=== PATIENT | male | born 1955 | race Caucasian/White ===

== ENCOUNTER → 2017-08-04 | Outpatient (CLI) | payer BC ==
[2017-08-04 12:12] LABS: BASO % 0.5 %; BASO ABS # 0.03 K/uL (0-0.2); EOS % 2.5 %; EOS ABS # 0.16 K/uL (0-0.5); HEMATOCRIT 45.3 % (42-52); HEMOGLOBIN 15.9 g/dL (14.0-18.0); IG# 0.01 K/uL (0.00-0.02); LYMPH % 37.7 %; LYMPH ABS # 2.37 K/uL (1.2-3.4); MEAN CELL VOLUME 88.5 fL (80-100); MEAN CORPUSCULAR HEMOGLOBIN 31.1 pg (25-34); MEAN CORPUSCULAR HGB CONC 35.1 g/dl (32-36); MONO % 6.7 %; MONO ABS # 0.42 K/uL (0.11-0.59); NEUT % 52.4 %; NEUT ABS # 3.29 K/uL (1.4-6.5); PLATELET COUNT 202 K/uL (130-400); RED CELL DISTRIBUTION WIDTH CV 12.6 % (11.5-14.5); RED CELL DISTRIBUTION WIDTH SD 40.6 fL (36.4-46.3); WHITE BLOOD COUNT 6.28 K/uL (4.8-10.8)
[2017-08-04 12:35] LABS: BLOOD UREA NITROGEN 15 mg/dl (7-18); CALCIUM 9.4 mg/dl (8.5-10.1); CARBON DIOXIDE 30 mmol/L (21-32); CREATININE 1.07 mg/dl (0.60-1.40); GLUCOSE 96 mg/dl (70-99); POTASSIUM 4.3 mmol/L (3.5-5.1); SODIUM 138 mmol/L (136-145)
== END | disposition home or self-care (01) ==
LOC: C.CPL 09:43
PROVIDERS: ATTEND Surgery
DX: K40.90 Unilateral inguinal hernia, without obstruction or gangrene, not specified as recurrent (principal)

== ENCOUNTER → 2017-08-26 | Day surgery (SDC) | payer BC ==
[2017-08-11 08:36] VITALS: Ht 185.4 cm; Wt 104.1 kg
[~2017-08-26] VITALS: Ht 185.4 cm; Wt 104.1 kg
[~2017-08-26] MED LIST: ASCO10003 PO; ASPI81TA28 PO; BUPIVACAINE 0.5 % 5 MG/1 ML MPF 30ML VIAL ONE; CALC625T13 PO; CEFAZOLIN 2000MG IV PUSH 15 ML IV SCH; CEFAZOLIN SOD 1 GM VIAL ONE; CEPH500C2 PO; DEXAMETHASONE SOD INJ 4 MG/ML VIAL ONE; EpHEDrine SULFATE INJ 50 MG/ML AMP ONE; FENTANYL CITRATE INJ 50 MCG/1 ML 2 ML VIAL ONE; FERR325T18 PO; HYDR-5688 PO; HYDR12.55 PO; HYDROCODONE/ACETAMIN 5/325MG TAB PO PRN; LACTATED RINGER'S 1000ML 1,000 ML IV SCH; LANS30CA12 PO; LATA0.009 OPB; LIDOCAINE HCL 2% 2 ML VIAL (20MG/ML) ONE; LISI-461 PO; MIDAZOLAM HCL 1 MG/ML 2ML VIAL ONE; MULTTAB58 PO; OMEG10007 PO; ONDANSETRON INJ 2 MG/ML 2 ML VIAL ONE; PROPOFOL IV EMULSION 10 MG/ML 20 ML VIAL IV ONE; PRVC40 PO; SENNTAB23 PO; SODIUM CHLORIDE 0.9% 1000ML 1,000 ML IV SCH; SODIUM CHLORIDE 0.9% INJ 10 ML VIAL ONE
--- NOTE | 2017-08-26 12:52 | History & Physical Bridge - [place] ---
H&P Re-Evaluation Bridge Note: I have examined the patient, reviewed the History & Physical and in the interval since the performance of the History & Physical I have noted the following changes of clinical significance: No changes noted
--- NOTE | 2017-08-26 14:01 | [facility] Operative Report ---
Operative Report Operative Date Aug 26, 2017. Pre-Operative Diagnosis Right Inguinal Hernia Post-Operative Diagnosis Same as Pre-op Procedure(s) Performed Right Inguinal Open Hernia Repair with Mesh Surgeon Dr. Isbell [employer] Surgeon(s) Nena BONILLA Estimated Blood Loss 10ML Findings indirect sac Specimens None Drains None Anesthesia Type General Complication(s) none Disposition Recovery Room / PACU I attest to the content of the Intraoperative Record and any orders documented therein. Any exceptions are noted below.
--- NOTE | 2017-08-26 14:08 | Discharge Instructions-SurgCtr ---
Discharge Instructions Date of Service Aug 26, 2017. Visit Reason for Visit: Right Inguinal Hernia Discharge Discharge Diagnosis / Problem: Rt inguinal hernia Discharge Goals Goal(s): Decrease discomfort, Improve function, Improve disease control Medications Stopped Medications Name(s): asa and fish oil stopped x 1 week. last dose last tuesday. Activity Recommendations Activity Limitations: as noted below Lifting Limitations: no more than 25 pounds (for 4 weeks) May Resume Sexual Activity: when tolerated Shower/Bathe: keep incision dry (for 2 days, may shower over incision on Sun ) Driving or Machine Use: resume 3 days after discharge Anesthesia . Post Anesthesia Instructions: If you have had General Anesthesia or IV Sedation: * Do not drive today. * Resume driving when surgeon permits. * Do not make important decisions or sign legal documents today. * Call surgeon for: 1. Temperature elevations greater than 101 degrees F. 2. Uncontrollable pain. 3. Excessive bleeding. 4. Persistent nausea and vomiting. 5. Medication intolerance (nausea, vomiting or rash). * For nausea and vomiting use only clear liquids such as: tea, soda, bouillon until nausea subsides, then gradually increase diet as tolerated. * If you have any concerns or questions, call your surgeon's office. If physician is unavailable and it is an emergency, call 911 or go to the nearest emergency room. . Instructions / Follow-Up Instructions / Follow-Up SPECIAL CARE INSTRUCTIONS: * Cover incisions and change daily for comfort/drainage. * Leave steri strips in place * Avoid constipation- may use Senokot S and Milk of magnesia twice daily as directed on the package * May use ibuprofen for pain as tolerated. * Expect some swelling and bruising. Call your doctor if: * Temperature above 101 degrees * Pain not relieved by pain medicine ordered * There is increased drainage or redness from any incision * You have any unanswered questions or concerns [phone]. FOLLOW UP VISIT: If not already scheduled, please call the office for a follow-up visit. for next week- some suture removal OFFICE PHONE NUMBER: Dr. Isbell Office Diet Recommendations Home Diet: resume previous diet Procedures Procedures Performed: Right Inguinal Open Hernia Repair with Mesh Pending Studies Studies pending at discharge: no Medical Emergencies . Who to Call and When: Medical Emergencies: If at any time you feel your situation is an emergency, please call 911 immediately. . Non-Emergent Contact Non-Emergency issues call your: Primary Care Provider, Surgeon . . "Provider Documentation" section prepared by Tarun Isbell. .
--- NOTE | 2017-08-26 14:32 | OPERATIVE REPORT ---
DATE OF OPERATION: 08/26/2017 NAME OF OPERATION: Open right inguinal hernia repair. PREOPERATIVE DIAGNOSIS: Right inguinal hernia. POSTOPERATIVE DIAGNOSIS: Same with indirect defect. STAFF SURGEON: Dr. Tarun Isbell. BUSHEL WORKER: Gloria Restrepo PA-C ANESTHESIA: General. DESCRIPTION OF PROCEDURE: The patient was brought in the operating room and placed on the operating table in supine position. His right lower quadrant prepped and draped in usual fashion. 0.5% plain Marcaine was used to anesthetize skin and subcutaneous tissue. Incision made parallel to the inguinal ligament, carrying dissection down identifying the external oblique fibers. I did have to go through significant adipose tissue. Fibers were sized along their length to the external ring, identifying the ilioinguinal and iliohypogastric nerves. The cord structures were then mobilized with mild difficulty. The patient had a relatively large indirect hernia sac, which was dissected away from the cord structures. It was then oversewn using 2-0 Ethibond suture and then reduced. The internal ring reinforced using a mesh plug. Then a large mesh patch placed into the floor of the canal around the cord structures secured to surrounding tissue using 2-0 Ethibond suture. The site was irrigated and then anesthetized using 0.5% plain Marcaine. External oblique fibers were closed around the cord over the mesh using 2-0 Ethibond suture. Subcutaneous tissue reapproximated using 2-0 plain catgut suture, then the skin reapproximated using 4-0 nylon suture and Steri-Strips. My assistant account manager helped with prepping, draping, exposing the hernia, repair of the hernia and closure of the wound. I attest to the content of the Intraoperative Record and any orders documented therein. Any exception s are noted below.
[2017-08-26 14:52] VITALS: TEMP 36.4
--- NOTE | 2017-08-26 15:03 | Anesthesia Progress Nt - [facility] ---
Anesthesia Post Op Note Date & Time Aug 26, 2017 at 15:03 Vital Signs Pain Intensity: 0 Vital Signs Past 12 Hours Date Time Temp Pulse Resp B/P (MAP) Pulse Ox O2 Delivery O2 Flow Rate FiO2 08/26/17 14:52 36.4 57 16 160/89 (112) 97 Room Air 08/26/17 14:47 61 15 96 08/26/17 14:47 61 15 08/26/17 14:46 127/81 08/26/17 14:44 36.3 58 15 127/81 96 Room Air 08/26/17 14:42 61 18 08/26/17 14:42 61 18 96 08/26/17 14:41 132/81 08/26/17 14:37 63 15 08/26/17 14:37 63 15 97 08/26/17 14:36 133/83 08/26/17 14:32 59 16 100 08/26/17 14:32 59 16 08/26/17 14:31 132/78 08/26/17 14:27 60 11 08/26/17 14:27 60 11 100 08/26/17 14:26 129/76 08/26/17 14:22 63 12 08/26/17 14:22 63 12 100 08/26/17 14:21 138/76 08/26/17 14:17 60 12 08/26/17 14:17 60 12 100 08/26/17 14:16 132/76 08/26/17 14:13 136/79 08/26/17 14:12 36.7 67 12 136/79 97 Mask 6 08/26/17 11:21 36.5 48 18 139/80 (99) 96 Room Air Notes Mental Status: alert / awake / arousable, participated in evaluation Pt Amnestic to Procedure: Yes Nausea / Vomiting: adequately controlled Pain: adequately controlled Airway Patency, RR, SpO2: stable & adequate BP & HR: stable & adequate Hydration State: stable & adequate Anesthetic Complications: no major complications apparent
[2017-08-26 15:16] VITALS: BP 144/81; PULSE 58; O2SAT 97
== END | disposition home or self-care (01) ==
LOC: X.SURG 10:54
PROVIDERS: ATTEND Surgery
DX: K40.90 Unilateral inguinal hernia, without obstruction or gangrene, not specified as recurrent (principal); G47.33 Obstructive sleep apnea (adult) (pediatric); I10 Essential (primary) hypertension; H40.9 Unspecified glaucoma; Z98.52 Vasectomy status; Z90.89 Acquired absence of other organs; Z88.8 Allergy status to other drugs, medicaments and biological substances; Z79.82 Long term (current) use of aspirin; Z79.899 Other long term (current) drug therapy; Z86.718 Personal history of other venous thrombosis and embolism

== ENCOUNTER 2021-02-01 21:19 | Observation (INO) ==
[2021-02-01] MEDS ORDERED: MoRPHine SULFATE 4 MG/ML 1 ML CARP\\VIAL IV STA (21:46)
[2021-02-01 22:24] LABS: Basophils # (auto) 0.02 K/uL (0-0.2); Basophils % (auto) 0.2 %; Eosinophils # (auto) 0.09 K/uL (0-0.5); Eosinophils % (auto) 0.9 %; Hematocrit (blood only) 42.7 % (42-52); Hemoglobin 14.5 g/dL (14.0-18.0); Immature Granulocytes # (auto) 0.02 K/uL (0.00-0.02); Immature Granulocytes % (auto) 0.2 %; Lymphocytes # (auto) 1.82 K/uL (1.2-3.4); Lymphocytes % (auto) 18.5 %; Mean Corpuscular Hemoglobin 28.9 pg (25-34); Mean Corpuscular Volume 85.2 fL (80-100); Mean Platelet Volume 10.4 fL (7.4-10.4); Monocytes # (auto) 1.03 K/uL (0.11-0.59); Monocytes % (auto) 10.5 %; Neutrophils # (auto) 6.84 K/uL (1.4-6.5); Neutrophils % (auto) 69.7 %; Platelet Count 184 K/uL (130-400); RDW Coefficient of Variation 13.5 % (11.5-14.5); RDW Standard Deviation 41.6 fL (36.4-46.3); Red Blood Count 5.01 M/uL (4.7-6.1); White Blood Count 9.82 K/uL (4.8-10.8)
[2021-02-01 22:42] LABS: Alanine Aminotransferase 29 U/L (12-78); Albumin Level 3.6 gm/dl (3.4-5.0); Aspartate Aminotransferase 12 U/L (15-37); BUN Creatinine Ratio 11.2 (10-20); Blood Urea Nitrogen 11 mg/dl (7-18); Calcium 9.2 mg/dl (8.5-10.1); Carbon Dioxide 27 mmol/L (21-32); Chloride 103 mmol/L (98-107); Creatinine Clr Calc Pharmacy 101.5 ml/min; Est GFR (Non-African American) 83.7 ml/min; Glucose 133 mg/dl (70-99); Lipase 87 U/L (73-393); Partial Thromboplastin Time 26.6 Seconds (21.0-31.0); Potassium 3.7 mmol/L (3.5-5.1); Prothrombin Time 10.3 Seconds (9.0-12.0); Sodium 137 mmol/L (136-145)
[2021-02-01 22:45] LABS: D Dimer 4490 ug/L FEU (0-500)
[2021-02-01 22:47] LABS: Albumin Globulin Ratio 0.8 (0.9-2); Alkaline Phosphatase 71 U/L (45-117); Bilirubin,Total 1.7 mg/dl (0.2-1); Globulin 4.7 gm/dl (2.5-4.0); Total Protein 8.3 gm/dl (6.4-8.2); Troponin I < 0.015 ng/ml (0-0.045)
[2021-02-01] MEDS ORDERED: OPTIRAY 320 125ml IV ONE (23:19)
[2021-02-01 23:49] LABS: Appearance Urine Clear (Clear); Bacteria Urine Automated Negative (Negative); Bilirubin Urine Negative (Negative); Blood Urine 2+ (Negative); Cast Urine Automated 0 /lpf (0-5); Color Urine Yellow; Epithelial Cell Urine Auto 0-5 /lpf (0-5); Glucose Urine UA Negative (Negative); Ketones Urine Negative (Negative); Leukocyte Esterase Urine Negative (Negative); Nitrite Urine Negative (Negative); Protein Urine Negative (Negative); Specific Gravity Urine 1.032 (1.000-1.030); Urobilinogen Urine Negative (Negative)
[2021-02-02] MEDS ORDERED: Heparin IV Adult Wt-Based Standard WITH Bolus Protocol IV STA (00:24)
[2021-02-02] MEDS ORDERED: HEPARIN SOD (PORCINE) 1000 UNIT/ML IV ONE ×2 (00:39→22:45)
[2021-02-02 00:41] LABS: Magnesium 2.2 mg/dl (1.8-2.4)
--- NOTE | 2021-02-02 00:41 | Emergency Department Note ---
ED Visit Note Patient was seen and evaluated at the bedside w/ Mariya Sandoval PA-C. Please see their note for history, physical, details, and disposition. Patient with possible provoked PE. Patient hemodynamically stable and started on heparin. .
[2021-02-02] MEDS ORDERED: HEPARIN SOD (PORCINE) 1000 UNIT/ML IV STA (01:01)
--- NOTE | 2021-02-02 01:04 | History & Physical Report ---
Date of Service February 02, 2021 Assessment & Plan (1) Pulmonary emboli: Plan: Likely secondary to decreased mobility following traumatic orthopedic injuries from last month Rule out leg clot as source hypertension, slight elevated secondary discomfort hyperlipidemia, on statin Rx MARISABEL on CPAP Hyperglycemia rule out DM Medical telemetry IV Heparin Follow LE venous Dopplers rule out DVT Defer discussion regarding home anticoagulation options between patient and AM provider. (Patient expressed interest in NOAC.) Analgesia, facilitate home BP meds Check hemoglobin A1c DVT prophylaxis. Heparin Full code Text document was generated using [employer] voice recognition software. It may contain grammatical or spelling errors. Kindly contact undersigned for clarification of any documentation item in question. History of Present Illness Chief Complaint: Right flank pain, shortness of breath Primary Care Provider: Brian Guillaume, History obtained from patient and records. Medical history significant for hypertension, hyperlipidemia, GERD, MARISABEL on CPAP, hx HAV, Lyme disease status post treatment. Patient fell off a ladder about 5 weeks ago. Sustained comminuted fracture of distal radius along with age indeterminate anterior superior endplate T12 compression fracture on imaging upon evaluation at [facility]. No operative intervention. LSO brace and right forearm cast recommended by orthopedics outpatient. Decreased mobility at home the next few weeks secondary to injury. Yesterday, patient noted achy right mid back pain with shortness of breath somewhat pleuritic. Some shortness of breath. No fever, no chills no cough. Prior history of superficial thrombophlebitis of the lower extremity not requiring anticoagulation. Father with lower extremity clot for unknown reasons. Patient brought to the emergency room by . IV Heparin started at the ER for pulmonary embolism on imaging. Medical History as above Surgical History : Dental surgery, appendectomy, hernia repair, vasectomy, ankle surgery Family History : Blood clot, DM, heart disease, lung cancer, stroke Personal/Social history : Non-smoker, no EtOH intake, retired from office work Allergies Allergy/AdvReac Type Severity Reaction Status Date / Time ANTIHISTAMINES Allergy Unknown "I FEEL Uncoded 02/01/21 21:35 REALLY LOOPY" Home Medications Medication Instructions Recorded Confirmed Type ascorbic acid (vitamin C) 1,000 mg 1 g PO DAILY 01/03/19 02/02/21 History tablet (Vitamin C) docusate sodium 100 mg capsule 100 mg PO DAILY 01/03/19 02/02/21 History (Stool Softener) latanoprost 0.005 % eye drops 1 drp OPHTHALMIC (EYE) PM 01/03/19 02/02/21 History lisinopril 10 1 tab PO QAM 01/03/19 02/02/21 History mg-hydrochlorothiazide 12.5 mg tablet rosuvastatin 20 mg tablet 20 mg PO QAM 01/03/19 02/02/21 History ferrous gluconate 324 mg (38 mg 324 mg PO WK 12/25/20 02/02/21 History iron) tablet aspirin 81 mg tablet,delayed 81 mg PO DAILY 02/01/21 02/02/21 History release (Aspirin Low Dose) multivitamin 1 tab PO DAILY 02/02/21 02/02/21 History netarsudil 0.02 % eye drops 1 drp OPL PM 02/02/21 02/02/21 History (Rhopressa) omega-3 fatty acids 1,000 mg 1,000 mg PO BID 02/02/21 02/02/21 History capsule (Fish Oil Concentrate) omeprazole 20 mg tablet,delayed 20 mg PO DAILY 02/02/21 02/02/21 History release psyllium husk 0.52 gram capsule 0.52 g PO UD 02/02/21 02/02/21 History (Fiber-Caps (psyllium husk)) Past Med/Surg History Medical History (Updated 02/02/21 @ 01:30 by Sammy Ceron MD) Chronic back pain GERD (gastroesophageal reflux disease) Glaucoma History of kidney stones Surgical History History of appendectomy History of colonoscopy History of right inguinal hernia repair History of vasectomy History of wisdom tooth extraction Family History Grandmother (Paternal) Family history of diabetes mellitus Social History Smoking Status: Never smoker Second Hand Exposure: No; Hx Alcohol Use: Yes Alcohol type: beer and wine Hx Substance Use: No Preferred Language: Macanese Communication Ability: Effective Dispensing Operator Required: No Beliefs That Will Affect Care: None Current Living Situation: Spouse Feels Safe at Home: Yes Assistive Devices: CPAP and Glasses Review of Systems Review of Systems: As per HPI, all 10 systems reviewed, all other ROS negative Physical Exam Physical Exam: GENERAL: Comfortable, pleasant, obese, no respiratory distress SKIN: Normal color, warm HEENT: [place] palpebral conjunctivae, no ptosis, dry buccal mucosa NECK : Supple, short neck, no tenderness CHEST : CTA, right chest wall tenderness HEART : RRR, no obvious murmurs ABDOMEN: Some distention, nontender EXTREMITIES : Right forearm cast, minimal LE swelling, no LE tenderness, no other conspicuous deformities noted NEUROLOGIC : Coherent, no facial asymmetry, no other gross focality Results & Data Results & Data ([facility]) Vital Signs (Past 12 Hours) Vital Signs Temp Pulse Pulse Resp BP BP Pulse Ox 02/01/21 23:58 91 H 16 154/78 H 96 02/01/21 22:19 64 20 92 02/01/21 21:20 37.2 C 75 18 160/86 H 91 Laboratory Results Laboratory Results WBC 9.82 K/uL (4.8-10.8) 02/01/21 22:02 RBC 5.01 M/uL (4.7-6.1) 02/01/21 22:02 Hgb 14.5 g/dL (14.0-18.0) 02/01/21 22:02 Hct 42.7 % (42-52) 02/01/21 22:02 MCV 85.2 fL (80-100) 02/01/21 22:02 MCH 28.9 pg (25-34) 02/01/21 22:02 MCHC 34.0 g/dL (32-36) 02/01/21 22:02 RDW Std Deviation 41.6 fL (36.4-46.3) 02/01/21 22:02 RDW Coeff of Molina 13.5 % (11.5-14.5) 02/01/21 22:02 Plt Count 184 K/uL (130-400) 02/01/21 22:02 MPV 10.4 fL (7.4-10.4) 02/01/21 22:02 Immature Gran % (Auto) 0.2 % 02/01/21 22:02 Neut % (Auto) 69.7 % 02/01/21 22:02 Lymph % (Auto) 18.5 % 02/01/21 22:02 [place] % (Auto) 10.5 % 02/01/21 22:02 Eos % (Auto) 0.9 % 02/01/21 22:02 Baso % (Auto) 0.2 % 02/01/21 22:02 Neut # (Auto) 6.84 K/uL (1.4-6.5) H 02/01/21 22:02 Lymph # (Auto) 1.82 K/uL (1.2-3.4) 02/01/21 22:02 [place] # (Auto) 1.03 K/uL (0.11-0.59) H 02/01/21 22:02 Eos # (Auto) 0.09 K/uL (0-0.5) 02/01/21 22:02 Baso # (Auto) 0.02 K/uL (0-0.2) 02/01/21 22:02 Immature Gran # (Auto) 0.02 K/uL (0.00-0.02) 02/01/21 22:02 PT 10.3 Seconds (9.0-12.0) 02/01/21 22:02 INR 1.0 (0.9-1.1) 02/01/21 22:02 APTT 26.6 Seconds (21.0-31.0) 02/01/21 22:02 PTT Ratio 1.0 02/01/21 22:02 D-Dimer 4490 ug/L FEU (0-500) H* 02/01/21 22:02 Sodium 137 mmol/L (136-145) 02/01/21 22:02 Potassium 3.7 mmol/L (3.5-5.1) 02/01/21 22:02 Chloride 103 mmol/L (98-107) 02/01/21 22:02 Carbon Dioxide 27 mmol/L (21-32) 02/01/21 22:02 Anion Gap 7.0 (3-11) 02/01/21 22:02 BUN 11 mg/dl (7-18) 02/01/21 22:02 Creatinine 0.95 mg/dl (0.6-1.4) 02/01/21 22:02 Est Cr Clr Drug Dosing 101.5 ml/min 02/01/21 22:02 Est GFR ( Amer) 97.0 ml/min 02/01/21 22:02 Est GFR (Non-Af Amer) 83.7 ml/min 02/01/21 22:02 BUN/Creatinine Ratio 11.2 (10-20) 02/01/21 22:02 Glucose 133 mg/dl (70-99) H 02/01/21 22:02 Calcium 9.2 mg/dl (8.5-10.1) 02/01/21 22:02 Magnesium 2.2 mg/dl (1.8-2.4) 02/01/21 22:02 Total Bilirubin 1.7 mg/dl (0.2-1) H 02/01/21 22:02 AST 12 U/L (15-37) L 02/01/21 22:02 ALT 29 U/L (12-78) 02/01/21 22:02 Alkaline Phosphatase 71 U/L (45-117) 02/01/21 22:02 Troponin I < 0.015 ng/ml (0-0.045) 02/01/21 22:02 Total Protein 8.3 gm/dl (6.4-8.2) H 02/01/21 22:02 Albumin 3.6 gm/dl (3.4-5.0) 02/01/21 22:02 Globulin 4.7 gm/dl (2.5-4.0) H 02/01/21 22:02 Albumin/Globulin Ratio 0.8 (0.9-2) L 02/01/21 22:02 Lipase 87 U/L (73-393) 02/01/21 22:02 Urine Color Yellow 02/01/21 23:41 Urine Appearance Clear (Clear) 02/01/21 23:41 Urine pH 7.0 (4.5-7.5) 02/01/21 23:41 Ur Specific [employer] 1.032 (1.000-1.030) H 02/01/21 23:41 Urine Protein Negative (Negative) 02/01/21 23:41 Urine Glucose (UA) Negative (Negative) 02/01/21 23:41 Urine Ketones Negative (Negative) 02/01/21 23:41 Urine Blood 2+ (Negative) H 02/01/21 23:41 Urine Nitrite Negative (Negative) 02/01/21 23:41 Urine Bilirubin Negative (Negative) 02/01/21 23:41 Urine Urobilinogen Negative (Negative) 02/01/21 23:41 Ur Leukocyte Esterase Negative (Negative) 02/01/21 23:41 Urine WBC (Auto) 1-5 /hpf (0-5) 02/01/21 23:41 Urine RBC (Auto) 10-30 /hpf (0-4) H 02/01/21 23:41 U Hyaline Cast (Auto) 0 /lpf (0-5) 02/01/21 23:41 U Epithel Cells (Auto) 0-5 /lpf (0-5) 02/01/21 23:41 Urine Bacteria (Auto) Negative (Negative) 02/01/21 23:[address] chest initial read: Segmental pulmonaryemboli which appear acute in the right middle and lower lobes. RVto LVratio less than 1. No convincing evidence of right heart strain. Airspace opacityin the right lower lobe, infarct versus infection. EKG as per my interpretation rate 65, NSR, LAD, LAFB, LVH, no ischemia
[2021-02-02] MEDS ORDERED: POTASSIUM CHLORIDE 40 MEQ in SODIUM CHLORIDE 0.9% 1000ML 1,000 ML IV STA (01:09)
[2021-02-02] MEDS: HEPARIN SODIUM/DEXTROSE 25,000 UNITS/500 ML BAG IV SCH ×3 (01:11→16:50)
[2021-02-02] MEDS ORDERED: LIDOCAINE 5% 1 PATCH TD STA (01:11)
--- NOTE | 2021-02-02 01:57 | Emergency Department Note ---
History of Present Illness General Chief complaint: Back Injury/Pain Stated complaint: RIGHT SIDED PAIN UNDER RIBS,INTO BACK,SOB Time Seen by Provider: 02/01/21 21:31 Source: patient Mode of arrival: ambulatory Limitations: no limitations History of Present Illness Maximum Pain Intensity: 6 This patient is a 65-year-old male who presents to the emergency department for evaluation of right-sided rib pain. Patient states that his pain started yesterday. The pain is located under the right rib cage and radiates from the front to the back. He states that last night, he had a hard time sleeping because it hurt worse to lay down flat. He has developed some shortness of breath associated with this. His current discomfort is a 3/10 but he states it was more severe yesterday and rated his pain an 8/10 at its worst. It feels better when he is leaning forward. He has tried heat which helped and took a Percocet this morning which helped. He states it is painful to breathe and cough. He did have some chills and a slightly elevated temperature of 99.7 F yesterday. He denies any urinary symptoms, nausea or vomiting. Patient denies any history of blood clots but does note a history of DVT in his grandfather. He states that 1 month ago, he had a fall which resulted in a compression fracture of his back and a wrist fracture. He is wearing a back brace and right wrist splint. Patient denies any recent travel. He is not a smoker. Home Medications Medication Instructions Recorded Confirmed Type ascorbic acid (vitamin C) 1,000 mg 1 g PO DAILY 01/03/19 02/02/21 History tablet (Vitamin C) docusate sodium 100 mg capsule 100 mg PO DAILY 01/03/19 02/02/21 History (Stool Softener) latanoprost 0.005 % eye drops 1 drp OPHTHALMIC (EYE) PM 01/03/19 02/02/21 History lisinopril 10 1 tab PO QAM 01/03/19 02/02/21 History mg-hydrochlorothiazide 12.5 mg tablet rosuvastatin 20 mg tablet 20 mg PO QAM 01/03/19 02/02/21 History ferrous gluconate 324 mg (38 mg 324 mg PO WK 12/25/20 02/02/21 History iron) tablet aspirin 81 mg tablet,delayed 81 mg PO DAILY 02/01/21 02/02/21 History release (Aspirin Low Dose) multivitamin 1 tab PO DAILY 02/02/21 02/02/21 History netarsudil 0.02 % eye drops 1 drp OPL PM 02/02/21 02/02/21 History (Rhopressa) omega-3 fatty acids 1,000 mg 1,000 mg PO BID 02/02/21 02/02/21 History capsule (Fish Oil Concentrate) omeprazole 20 mg tablet,delayed 20 mg PO DAILY 02/02/21 02/02/21 History release psyllium husk 0.52 gram capsule 0.52 g PO UD 02/02/21 02/02/21 History (Fiber-Caps (psyllium husk)) Allergies Allergy/AdvReac Type Severity Reaction Status Date / Time ANTIHISTAMINES Allergy Unknown "I FEEL Uncoded 02/01/21 21:35 REALLY LOOPY" Past Med/Surg History Medical History (Updated 02/02/21 @ 05:57 by Mariya Sandoval PA-C) Chronic back pain GERD (gastroesophageal reflux disease) Glaucoma History of kidney stones Surgical History History of appendectomy History of colonoscopy History of right inguinal hernia repair History of vasectomy History of wisdom tooth extraction Family History Grandmother (Paternal) Family history of diabetes mellitus Social History Smoking Status: Never smoker Second Hand Exposure: No; Hx Alcohol Use: Yes Alcohol type: beer Hx Substance Use: No Preferred Language: Hungarian Communication Ability: Effective Research Professional Required: No Beliefs That Will Affect Care: None Current Living Situation: Spouse Other Information That Helps Us Care for You: No Feels Safe at Home: Yes Safety Concerns: Feels Safe At This Time Assistive Devices: Brace/Splint/Immobilizer, CPAP and Glasses Assistive Devices Comment: Back brace. Review of Systems A total of 10 systems reviewed and were otherwise negative Physical Exam Vital Signs Vital Signs - 24 hr 02/01/21 21:20 02/01/21 22:19 02/01/21 23:58 Temperature 37.2 C Temperature Source Temporal Artery Scan Pulse Rate 75 64 Pulse Rate [Right Finger] 91 H Pulse Rhythm Regular Respiratory Rate 18 20 16 Respiratory Effort / Characteristics Non-Labored Respiratory Depth Normal Blood Pressure 160/86 H Blood Pressure [Right Arm] 154/78 H Blood Pressure Mean 110 Blood Pressure Mean [Right Arm] 103 Blood Pressure Position [Right Arm] Lying Pulse Oximetry 91 92 96 Oxygen Delivery Method Room Air Room Air Room Air Sepsis Recent Fever Within 48 Hours No Sepsis New/Unexplained Change in Mental Status No Sepsis Action Taken by Nursing No Action Required 02/02/21 02:00 Temperature Temperature Source Pulse Rate Pulse Rate [Right Finger] 62 Pulse Rhythm Respiratory Rate 16 Respiratory Effort / Characteristics Respiratory Depth Blood Pressure Blood Pressure [Right Arm] 136/78 Blood Pressure Mean Blood Pressure Mean [Right Arm] 97 Blood Pressure Position [Right Arm] Lying Pulse Oximetry 98 Oxygen Delivery Method Room Air Sepsis Recent Fever Within 48 Hours Sepsis New/Unexplained Change in Mental Status Sepsis Action Taken by Nursing VITALS: Vitals are noted on the nurse's note and reviewed by myself. GENERAL: This is a 65-year-old male, sitting up at the side of the bed. Patient appears to be in pain. SKIN: The skin was without rashes. HEAD: Normocephalic atraumatic. EARS: External auditory canals clear, tympanic membranes pearly spangler without erythema or effusion bilaterally. EYES: Pupils equal round and reactive to light and accommodation. MOUTH: Mucous membranes moist. Tonsils are not enlarged. Pharynx without erythema or exudate. NECK: Supple without nuchal rigidity. No lymphadenopathy. HEART: Regular rate and rhythm without murmurs gallops or rubs. LUNGS: Crackles noted in the right lung base. No retractions or accessory muscle use. ABDOMEN: Positive bowel sounds x 4. Soft, nontender to palpation. No guarding or rebound tenderness. NEURO: Patient was alert and oriented to person place and time. Course Consultations Consultation #1: Dr. Osmany Palma hospitalist Administered Medications Acetaminophen (Acetaminophen 325 Mg Tab) 650 mg PO Q4H PRN PRN Reason: Pain or Fever Stop: 03/04/21 03:21 Last Admin: 02/02/21 03:56 Dose: 650 mg Documented by: [id number] Heparin Sodium/Dextrose (Heparin Sodium/Dextrose) 25,000 units in 500 mls @ 33 mls/hr IV .[id number] [facility]; Protocol Stop: 03/04/21 00:44 Last Admin: 02/02/21 01:11 Dose: 1,650 units/hr, 33 mls/hr Documented by: [id number] Cosigned by: [id number] Potassium Chloride 40 meq/ (Sodium Chloride) 1,020 mls @ 50 mls/hr IV .[id number] STA Stop: 02/02/21 21:32 Last Admin: 02/02/21 01:41 Dose: 50 mls/hr Documented by: [id number] Tramadol HCl (Tramadol Hcl 50 Mg Tablet) 25 - 50 mg PO Q4H PRN PRN Reason: Pain Stop: 03/04/21 03:21 Last Admin: 02/02/21 05:23 Dose: 50 mg Documented by: [id number] Discontinued Medications Heparin Sodium (Porcine) (Heparin Sod (Porcine) 1000 Unit/Ml) 7,000 units IV NOW STA Stop: 02/02/21 01:02 Last Admin: 02/02/21 01:10 Dose: 5,000 units Documented by: [id number] Cosigned by: [id number] Ioversol (Optiray 320 125ml) 120 ml IV ONCE ONE Stop: 02/01/21 23:20 Last Admin: 02/01/21 23:19 Dose: 120 ml Documented by: [id number] Lidocaine (Lidocaine 5% 1 Patch) 1 patch TD ONE STA Stop: 02/02/21 01:12 Last Admin: 02/02/21 03:07 Dose: 1 patch Documented by: [id number] Morphine Sulfate (Morphine Sulfate 4 Mg/Ml 1 Ml Carp\\Vial) 4 mg IV NOW STA Stop: 02/01/21 21:47 Last Admin: 02/01/21 22:14 Dose: 4 mg Documented by: [id number] Critical Care Time Critical Care Time: Yes Total Critical Care Time: 34 I have personally spent greater than 34 minutes of critical care time in the direct management of this patient. This includes bedside care, interpretation of diagnostic studies, and testing, discussion with consultants, patient, and family members, and other required patient management activities. This 34 minutes is in excess of all separately billable procedures. Medical Decision Making Differential Diagnosis Differential diagnosis includes renal calculus, pyelonephritis, musculoskeletal pain, ruptured AAA, aortic dissection, diverticulitis, perforated viscus, bowel obstruction, biliary pathology, pancreatitis, PE, pneumonia, pneumothorax, trauma, herpes zoster, malignancy, among others. Home Medications Current Medication List: was personally reviewed by me Laboratory Data Attestation: I reviewed the patient's lab results. Result diagrams: 02/02/21 05:06 02/02/21 05:06 Lab Results 02/01/21 02/01/21 02/01/21 Range/Units 22:02 22:02 22:02 WBC 9.82 (4.8-10.8) K/uL RBC 5.01 (4.7-6.1) M/uL Hgb 14.5 (14.0-18.0) g/dL Hct 42.7 (42-52) % MCV 85.2 (80-100) fL MCH 28.9 (25-34) pg MCHC 34.0 (32-36) g/dL RDW Std Deviation 41.6 (36.4-46.3) fL RDW Coeff of [place] 13.5 (11.5-14.5) % Plt Count 184 (130-400) K/uL MPV 10.4 (7.4-10.4) fL Immature Gran % (Auto) 0.2 % Neut % (Auto) 69.7 % Lymph % (Auto) 18.5 % [place] % (Auto) 10.5 % Eos % (Auto) 0.9 % Baso % (Auto) 0.2 % Neut # (Auto) 6.84 H (1.4-6.5) K/uL Lymph # (Auto) 1.82 (1.2-3.4) K/uL [place] # (Auto) 1.03 H (0.11-0.59) K/uL Eos # (Auto) 0.09 (0-0.5) K/uL Baso # (Auto) 0.02 (0-0.2) K/uL Immature Gran # (Auto) 0.02 (0.00-0.02) K/uL PT 10.3 (9.0-12.0) Seconds INR 1.0 (0.9-1.1) APTT 26.6 (21.0-31.0) Seconds PTT Ratio 1.0 D-Dimer 4490 H* (0-500) ug/L FEU Sodium 137 (136-145) mmol/L Potassium 3.7 (3.5-5.1) mmol/L Chloride 103 (98-107) mmol/L Carbon Dioxide 27 (21-32) mmol/L Anion Gap 7.0 (3-11) BUN 11 (7-18) mg/dl Creatinine 0.95 (0.6-1.4) mg/dl Est Cr Clr Drug Dosing 101.5 ml/min Est GFR ( Amer) 97.0 ml/min Est GFR (Non-Af Amer) 83.7 ml/min BUN/Creatinine Ratio 11.2 (10-20) Glucose 133 H (70-99) mg/dl Calcium 9.2 (8.5-10.1) mg/dl Magnesium 2.2 (1.8-2.4) mg/dl Total Bilirubin 1.7 H (0.2-1) mg/dl AST 12 L (15-37) U/L ALT 29 (12-78) U/L Alkaline Phosphatase 71 (45-117) U/L Troponin I < 0.015 (0-0.045) ng/ml Total Protein 8.3 H (6.4-8.2) gm/dl Albumin 3.6 (3.4-5.0) gm/dl Globulin 4.7 H (2.5-4.0) gm/dl Albumin/Globulin Ratio 0.8 L (0.9-2) Lipase 87 (73-393) U/L Urine Color Urine Appearance (Clear) Urine pH (4.5-7.5) Ur Specific [place] (1.000-1.030) Urine Protein (Negative) Urine Glucose (UA) (Negative) Urine Ketones (Negative) Urine Blood (Negative) Urine Nitrite (Negative) Urine Bilirubin (Negative) Urine Urobilinogen (Negative) Ur Leukocyte Esterase (Negative) Urine WBC (Auto) (0-5) /hpf Urine RBC (Auto) (0-4) /hpf U Hyaline Cast (Auto) (0-5) /lpf U Epithel Cells (Auto) (0-5) /lpf Urine Bacteria (Auto) (Negative) COVID-19 Eval Order SARS-CoV-2 (PCR) (Negative) 02/01/21 02/02/21 02/02/21 Range/Units 23:41 01:08 01:08 WBC (4.8-10.8) K/uL RBC (4.7-6.1) M/uL Hgb (14.0-18.0) g/dL Hct (42-52) % MCV (80-100) fL MCH (25-34) pg MCHC (32-36) g/dL RDW Std Deviation (36.4-46.3) fL RDW Coeff of [place] (11.5-14.5) % Plt Count (130-400) K/uL MPV (7.4-10.4) fL Immature Gran % (Auto) % Neut % (Auto) % Lymph % (Auto) % [place] % (Auto) % Eos % (Auto) % Baso % (Auto) % Neut # (Auto) (1.4-6.5) K/uL Lymph # (Auto) (1.2-3.4) K/uL [place] # (Auto) (0.11-0.59) K/uL Eos # (Auto) (0-0.5) K/uL Baso # (Auto) (0-0.2) K/uL Immature Gran # (Auto) (0.00-0.02) K/uL PT (9.0-12.0) Seconds INR (0.9-1.1) APTT (21.0-31.0) Seconds PTT Ratio D-Dimer (0-500) ug/L FEU Sodium (136-145) mmol/L Potassium (3.5-5.1) mmol/L Chloride (98-107) mmol/L Carbon Dioxide (21-32) mmol/L Anion Gap (3-11) BUN (7-18) mg/dl Creatinine (0.6-1.4) mg/dl Est Cr Clr Drug Dosing ml/min Est GFR ( Amer) ml/min Est GFR (Non-Af Amer) ml/min BUN/Creatinine Ratio (10-20) Glucose (70-99) mg/dl Calcium (8.5-10.1) mg/dl Magnesium (1.8-2.4) mg/dl Total Bilirubin (0.2-1) mg/dl AST (15-37) U/L ALT (12-78) U/L Alkaline Phosphatase (45-117) U/L Troponin I (0-0.045) ng/ml Total Protein (6.4-8.2) gm/dl Albumin (3.4-5.0) gm/dl Globulin (2.5-4.0) gm/dl Albumin/Globulin Ratio (0.9-2) Lipase (73-393) U/L Urine Color Yellow Urine Appearance Clear (Clear) Urine pH 7.0 (4.5-7.5) Ur Specific [place] 1.032 H (1.000-1.030) Urine Protein Negative (Negative) Urine Glucose (UA) Negative (Negative) Urine Ketones Negative (Negative) Urine Blood 2+ H (Negative) Urine Nitrite Negative (Negative) Urine Bilirubin Negative (Negative) Urine Urobilinogen Negative (Negative) Ur Leukocyte Esterase Negative (Negative) Urine WBC (Auto) 1-5 (0-5) /hpf Urine RBC (Auto) 10-30 H (0-4) /hpf U Hyaline Cast (Auto) 0 (0-5) /lpf U Epithel Cells (Auto) 0-5 (0-5) /lpf Urine Bacteria (Auto) Negative (Negative) COVID-19 Eval Order Covid19 at [facility] SARS-CoV-2 (PCR) NEGATIVE (Negative) Imaging Data Attestation: I personally reviewed and interpreted this imaging study as follows: Radiologist's Impression: CTA CHEST: Segmental pulmonary emboli which appear acute in the right middle and lower lobes. RV to LV ratio less than 1. No convincing evidence of right heart strain. Airspace opacity in the right lower lobe, infarct versus infection. Radiologist: Babak Carballo MD ECG Data Attestation: I personally reviewed and interpreted this ECG as follows: Indication: + chest pain Rate (beats per minute): 67 Rhythm: + normal sinus ECG ST segments: + Normal ST segments ECG Findings: + LVH Change: no significant change MDM Narrative Continuous surveillance monitor: Order was placed for continuous surveillance monitor. Patient was placed on the surveillance monitor. Patient was noted to be in normal sinus rhythm at an initial rate of 75 bpm. The patient is a 65-year-old male who presents today complaining of right flank pain. Labs revealed no leukocytosis, anemia or concerning electrolyte abnormalities. D-dimer was found to be significantly elevated at greater than 4000. A CT angiogram of the chest showed segmental PE is in the right middle and lower lobes with associated pulmonary infarct. Patient received morphine for his pain and felt much better after this. Findings were discussed with the patient. He was started on heparin. I do suspect this PE is most likely provoked by the patient's recent immobilization secondary to his injuries. The case was discussed with the [facility] hospitalist, who agreed to evaluate the patient for further care. Impression & Plan Pulmonary emboli Discharge Plan Visit Data Chief Complaint: Back Injury/Pain Stated Complaint: RIGHT SIDED PAIN UNDER RIBS,INTO BACK,SOB ED Provider: Torrey Coffey ED Midlevel Provider: Mariya Sandoval Discharge Problem: Pulmonary emboli Patient Disposition: Admitted As Inpatient Discharge Instructions Interventions: ED Discharge Assessment Last Done: 02/02/21 03:06 Discharge Problem: Pulmonary emboli Qualifiers: Pulmonary embolism type: unspecified Chronicity: acute Acute cor pulmonale presence: unspecified Qualified Code(s): I26.99 - Other pulmonary embolism without acute cor pulmonale
[2021-02-02] MEDS ORDERED: LORazepam 0.5 MG/1 ML VIAL IV PRN (03:22)
[2021-02-02] MEDS ORDERED: PROMETHAZINE HCL 12.5 MG in SODIUM CHLORIDE 0.9% 50 ML IV PRN (03:22)
[2021-02-02] MEDS ORDERED: MoRPHine SULFATE 4 MG/ML 1 ML CARP\\VIAL IV PRN (03:22)
[2021-02-02] MEDS: ACETAMINOPHEN 325 MG TAB PO PRN (03:56)
[2021-02-02 05:14] LABS: Basophils # (auto) 0.02 K/uL (0-0.2); Basophils % (auto) 0.2 %; Eosinophils # (auto) 0.18 K/uL (0-0.5); Eosinophils % (auto) 1.9 %; Hematocrit (blood only) 40.8 % (42-52); Hemoglobin 13.7 g/dL (14.0-18.0); Immature Granulocytes # (auto) 0.02 K/uL (0.00-0.02); Immature Granulocytes % (auto) 0.2 %; Lymphocytes # (auto) 1.93 K/uL (1.2-3.4); Lymphocytes % (auto) 20.5 %; Mean Corpuscular Hemoglobin 29.2 pg (25-34); Mean Corpuscular Hgb Conc 33.6 g/dL (32-36); Mean Platelet Volume 10.4 fL (7.4-10.4); Monocytes # (auto) 1.07 K/uL (0.11-0.59); Monocytes % (auto) 11.4 %; Neutrophils % (auto) 65.8 %; Platelet Count 192 K/uL (130-400); RDW Coefficient of Variation 13.5 % (11.5-14.5); RDW Standard Deviation 43.1 fL (36.4-46.3); Red Blood Count 4.69 M/uL (4.7-6.1); White Blood Count 9.42 K/uL (4.8-10.8)
[2021-02-02] MEDS: traMADol HCL 50 MG TABLET PO PRN ×2 (05:23→15:26)
[2021-02-02 05:31] LABS: BUN Creatinine Ratio 11.9 (10-20); Calcium 8.9 mg/dl (8.5-10.1); Creatinine Clr Calc Pharmacy 106.6 ml/min; Est GFR (African American) 103.5 ml/min; Est GFR (Non-African American) 89.3 ml/min
[2021-02-02] MEDS: lisinopril 20 MG TAB PO SCH (06:45)
[2021-02-02 07:47] LABS: Partial Thromboplastin Ratio 1.6
[2021-02-02 07:58] LABS: Estimated Average Glucose 126 mg/dl
--- NOTE | 2021-02-02 07:58 | Electrocardiogram Report ---
Test Reason : Blood Pressure : / mmHG Vent. Rate : 067 BPM Atrial Rate : 067 BPM P-R Int : 162 ms QRS Dur : 088 ms QT Int : 398 ms P-R-T Axes : 015 -34 023 degrees QTc Int : 420 ms Normal sinus rhythm Left atrial enlargement Left anterior fascicular block Left ventricular hypertrophy Abnormal ECG When compared with ECG of 04-AUG-2017 10:48, No significant change was found Confirmed by Jason Ruby ([id number]) on 02/02/2021 7:57:40 AM Referred By: REFERRED SELF Confirmed By:Jason Ruby
[2021-02-02] MEDS ORDERED: PNEUMOCOCCAL POLYSACCHARIDES 25 MCG/0.5 ML VIAL/SYR IM ONE (08:00)
[2021-02-02] MEDS ORDERED: RHOPRESSA~ORDER AWAITING ACTION SCH (08:00)
--- NOTE | 2021-02-02 08:04 | XRay Report ---
XR chest 1V portable CLINICAL HISTORY: right flank pain, sob COMPARISON STUDY: No previous studies for comparison. FINDINGS: No pneumothorax. No pleural effusion. Patchy mixed reticular and airspace opacities are seen at bilateral bases. Linear density is seen at the right suprahilar region which might represent small atelectasis. Lung volumes are decreased with crowded lung markings. Cardiomediastinal silhouette is within normal limits in size. No significant pulmonary vascular congestion.. Osseous structures: Degenerative changes of the spine. IMPRESSION: 1. Opacities at bilateral bases might represent pneumonia. Linear atelectasis at the right midlung i s seen. 2. Limited exam due to low inspiratory effort. ACT 112: Negative or not required by law. The above report was generated using voice recognition software. It may contain grammatical, syntax o r spelling errors. Electronically signed by: Anitha Yap DO 02/02/2021 8:03 AM
--- NOTE | 2021-02-02 08:33 | CT Scan Report ---
CT ANGIOGRAM OF THE CHEST CLINICAL HISTORY: right flank pain, sob, elevated dimer COMPARISON STUDY: No previous studies for comparison. TECHNIQUE: Following the IV administration of 120 mL of Optiray, CT angiogram of the thorax was perfo rmed from the thoracic inlet to the lung bases utilizing the pulmonary embolus protocol. Images are r eviewed in the axial, sagittal, and coronal planes. IV contrast was administered without complication . MIP imaging was performed. A dose lowering technique was utilized adhering to the principles of AL JOSE. CT DOSE: 537.56 mGycm FINDINGS: There is adequate opacification within main pulmonary artery. Nearly occlusive embolus is seen within right middle lobe branch of the pulmonary artery. Also is the re is possible filling defect within small left lower lobe pulmonary artery branches. Evaluation of p eripheral branches is limited due to motion artifact. No evidence of right heart strain. Heart is normal in size without evidence of pericardial effusion. Moderate to severe coronary calcifications are seen. Main pulmonary artery is within upper limits of normal in caliber. There is no axillary, supra clavicle or internal mammary lymphadenopathy seen. Mediastinal lymph nodes are not enlarged. Visualized portion of thyroid gland shows no evidence of fo robbin lesions. Minimal fat containing hiatal hernia is seen. Ascending aorta size is within upper limits of normal. Minimal ectasia of descending thoracic aorta i s seen measuring 3.1 cm in diameter. Minimal atherosclerosis is seen involving aortic wall. Tracheobronchial tree is patent. Linear consolidative opacity is seen within lateral basal/posterior basal segment of the right lower lobe. Patchy infiltrates with surrounding groundglass attenuation is seen within posterior basal segm ent of the right lower lobe. Trace right pleural effusion is seen. Minimal atelectasis at dependent portion of the right lower lobe is seen. Limited evaluation of upper abdominal viscera shows no acute abnormalities. Evaluation of osseous structures shows degenerative changes of the spine. IMPRESSION: 1. Acute pulmonary embolus is seen within right middle lobe branch of the pulmonary artery. No evide nce of right heart strain. 2. Atelectasis and possible infiltrates within right lower lobe. Trace right pleural effusion. 3. Atherosclerosis. Mild ectasia of descending thoracic aorta. 4. The rest of findings as above. ACT 112: Negative or not required by law. The above report was generated using voice recognition software. It may contain grammatical, syntax o r spelling errors. Electronically signed by: Anitha Yap DO 02/02/2021 8:32 AM
--- NOTE | 2021-02-02 08:34 | Ultrasound Report ---
US venous doppler LE BI CLINICAL HISTORY: PE COMPARISON STUDY: No previous studies for comparison. FINDINGS: Real-time and color flow Doppler imaging were performed. Flow was seen within the femoral, popliteal and calf veins with no intraluminal thrombus demonstrated. The saphenous vein is patent. IMPRESSION: No evidence of deep venous thrombosis. ACT 112: Negative or not required by law. The above report was generated using voice recognition software. It may contain grammatical, syntax o r spelling errors. Electronically signed by: Anitha Yap DO 02/02/2021 8:33 AM
[2021-02-02] MEDS: ROSUVASTATIN CALCIUM 20 MG TAB PO SCH (08:35)
[2021-02-02] MEDS: PSYLLIUM 58.6% POWDER PACKET PO SCH (08:35)
[2021-02-02] MEDS: PANTOprazole 40 MG TAB PO SCH (08:35)
[2021-02-02] MEDS: MULTIVITAMIN TAB PO SCH (08:36)
[2021-02-02] MEDS: DOCUSATE SODIUM 100 MG CAP PO SCH (08:36)
[2021-02-02] MEDS ORDERED: FERROUS GLUCONATE 324 MG TAB PO SCH (09:00)
[2021-02-02] MEDS ORDERED: lisinopril 10 MG TAB PO SCH (09:00)
[2021-02-02 14:26] LABS: Partial Thromboplastin Ratio 1.5; Partial Thromboplastin Time 38.8 Seconds (21.0-31.0)
--- NOTE | 2021-02-02 15:08 | Hospitalist Progress Note ---
Date of Service February 02, 2021 Assessment & Plan (1) Pulmonary emboli: Plan: 65-year-old gentleman with PMH of recent T12 compression fracture/distal radius fracture x right [December 2020], HTN, HLD, GERD, MARISABEL on CPAP, HIV, and Lyme disease came in 02/02 to ED with complaint of right flank pain, shortness of breath. He has been managed for the following: #. Pulmonary embolism After the recent fracture, patient states that he had limited mobility [up to 3 times a day, each time lasting less than 10 minutes]. c/i with SOB, Rt chest pain CTA chest: Acute pulmonary embolus is seen within right middle lobe branch of the pulmonary artery. No evidence of right heart strain. US BLE: No evidence of deep venous thrombosis. Patient does not have any chest pain. His pulse rate low 50s, will continue to monitor overnight. EKG prn for bradycardia. Provoked PE Currently on heparin drip, will transition him to Xarelto tomorrow. Called pharmacy to see if Eliquis is covered. They suggested Xarelto is covered by his insurance. Advised patient on the instruction to take Xarelto as an outpatient and asked him to visit his primary care physician within a week's time upon discharge on further recommendation on how long he has to take his Xarelto for. #. Chronic medical conditions Resume home meds Reassess tomorrow for possible dicharge to home on Xarelto. Admission and Anticipated Discharge Date Admission Date: February 02, 2021 Subjective Patient was sitting up in bed, NAD, on RA. Patient denies Headache, Dizziness, Fever, Chills, Sore throat, Cough, Chest pain, palpitations, SOB, Belly pain, pain/burning while passing urine. Last Bowel movement [in AM]. No new issues overnight. Physical Exam Physical Exam: GENERAL: Alert and oriented x3. NAD, on RA. HEENT: No pallor, no icterus. Pupils equal, round and reactive to light. Oral mucosa moist. NECK: No JVD, no neck masses. HEART: S1 and S2 heard. Regular rate and rhythm. No murmur, no gallop. RESPIRATORY SYSTEM: Normal AP diameter. No accessory muscle use. No wheezing, no crackles. ABDOMEN: Soft, bowel sounds present, nontender, no distention. CENTRAL NERVOUS SYSTEM: Alert and oriented x3. No facial droop. Speech is clear. Obeys simple commands. Moves extremities. EXTREMITIES: No edema, no erythema seen. BLE non tender. Results & Data Results & Data ([facility]) Vital Signs (Past 12 Hours) Vital Signs Temp Pulse Pulse Resp BP BP Pulse Ox 02/02/21 11:36 36.6 C 49 L 13 135/76 93 02/02/21 08:00 54 L 02/02/21 03:24 36.7 C 57 L 20 174/84 H 95 02/02/21 03:06 76 18 178/90 H 99 (1) Pulmonary emboli Acute cor pulmonale presence: unspecified Chronicity: acute Pulmonary embo lism type: unspecified Qualified Code(s): I26.99 - Other pulmonary embolism without acute cor pulmonale
[2021-02-02] MEDS ORDERED: NETARSUDIL OPL SCH (21:00)
[2021-02-02] MEDS ORDERED: LATANOPROST 0.005% OP SOLN 2.5 ML BTL OP SCH ×2 (21:00)
[2021-02-02] MEDS ORDERED: LIDOCAINE 5% 1 PATCH TD SCH (21:00)
[2021-02-02 21:33] LABS: Partial Thromboplastin Ratio 1.4; Partial Thromboplastin Time 36.9 Seconds (21.0-31.0)
[2021-02-03] MEDS: HEPARIN SODIUM/DEXTROSE 25,000 UNITS/500 ML BAG IV SCH ×4 (03:47→13:10)
[2021-02-03] MEDS: ACETAMINOPHEN 325 MG TAB PO PRN (03:49)
[2021-02-03 04:41] LABS: Partial Thromboplastin Ratio 1.9
[2021-02-03 04:59] LABS: Partial Thromboplastin Time 49.8 Seconds (21.0-31.0)
[2021-02-03] MEDS: DOCUSATE SODIUM 100 MG CAP PO SCH (07:57)
[2021-02-03] MEDS: ROSUVASTATIN CALCIUM 20 MG TAB PO SCH (07:57)
[2021-02-03] MEDS: MULTIVITAMIN TAB PO SCH (07:57)
[2021-02-03] MEDS: lisinopril 20 MG TAB PO SCH (07:57)
[2021-02-03] MEDS: PSYLLIUM 58.6% POWDER PACKET PO SCH (07:57)
[2021-02-03] MEDS: PANTOprazole 40 MG TAB PO SCH (07:58)
[2021-02-03 11:03] LABS: Partial Thromboplastin Ratio 1.6; Partial Thromboplastin Time 41.3 Seconds (21.0-31.0)
--- NOTE | 2021-02-03 14:17 | Communication Note ---
Date of Service: February 03, 2021 Code 44 attestation: He is a 65-year-old male with provoked right middle lobe pulmonary embolism was admitted yesterday and remains stable as of today. No history of deep venous thrombosis. No right heart strain. His chart, imaging studies and labs were reviewed and it was thought that he can be discharged today in stable condition. He was appropriately managed by his attending physician in the hospital. By [facility] guidelines, a determination that the admission or continued stay is not medically necessary has been made by a member of the UR committee and a physician for this hospital stay, therefore a Code 44 will be completed and the Inpatient admission will be changed to outpatient. Dr Philip rCocker Member UR Committee
--- NOTE | 2021-02-03 20:20 | Discharge Summary ---
Date of Service February 03, 2021 Admission HPI Per Admitting Provider History obtained from patient and records. Medical history significant for hypertension, hyperlipidemia, GERD, MARISABEL on CPAP, hx HAV, Lyme disease status post treatment. Patient fell off a ladder about 5 weeks ago. Sustained comminuted fracture of distal radius along with age indeterminate anterior superior endplate T12 compression fracture on imaging upon evaluation at [facility]. No operative intervention. LSO brace and right forearm cast recommended by orthopedics outpatient. Decreased mobility at home the next few weeks secondary to injury. Yesterday, patient noted achy right mid back pain with shortness of breath somewhat pleuritic. Some shortness of breath. No fever, no chills no cough. Prior history of superficial thrombophlebitis of the lower extremity not requiring anticoagulation. Father with lower extremity clot for unknown reasons. Patient brought to the emergency room by . IV Heparin started at the ER for pulmonary embolism on imaging. Medical History as above Surgical History : Dental surgery, appendectomy, hernia repair, vasectomy, ankle surgery Family History : Blood clot, DM, heart disease, lung cancer, stroke Personal/Social history : Non-smoker, no EtOH intake, retired from office work Admission Exam Per Admitting Provider GENERAL: Comfortable, pleasant, obese, no respiratory distress SKIN: Normal color, warm HEENT: [place] palpebral conjunctivae, no ptosis, dry buccal mucosa NECK : Supple, short neck, no tenderness CHEST : CTA, right chest wall tenderness HEART : RRR, no obvious murmurs ABDOMEN: Some distention, nontender EXTREMITIES : Right forearm cast, minimal LE swelling, no LE tenderness, no other conspicuous deformities noted NEUROLOGIC : Coherent, no facial asymmetry, no other gross focality Principal Diagnosis Acute PE. Discharge Exam GENERAL: Alert and oriented x3. NAD, on RA. HEENT: No pallor, no icterus. Pupils equal, round and reactive to light. Oral mucosa moist. NECK: No JVD, no neck masses. HEART: S1 and S2 heard. Regular rate and rhythm. No murmur, no gallop. RESPIRATORY SYSTEM: Normal AP diameter. No accessory muscle use. No wheezing, no crackles. ABDOMEN: Soft, bowel sounds present, nontender, no distention. CENTRAL NERVOUS SYSTEM: Alert and oriented x3. No facial droop. Speech is clear. Obeys simple commands. Moves extremities. EXTREMITIES: No edema, no erythema seen. BLE non tender. Discharge Data Allergies Allergy/AdvReac Type Severity Reaction Status Date / Time ANTIHISTAMINES Allergy Unknown "I FEEL Uncoded 02/01/21 21:35 REALLY LOOPY" Consultations 02/02/21 00:27 ED Decision to Admit Stat Ordered Studies 02/01/21 22:48 CT angio chest PE protocol Urgent 02/02/21 00:24 US venous doppler [facility] Urgent Hospital Course (1) Pulmonary emboli: 65-year-old gentleman with PMH of recent T12 compression fracture/distal radius fracture x right [December 2020], HTN, HLD, GERD, MARISABEL on CPAP, HIV, and Lyme disease came in 02/02 to ED with complaint of right flank pain, shortness of breath. He has been managed for the following: #. Pulmonary embolism After the recent fracture, patient states that he had limited mobility [up to 3 times a day, each time lasting less than 10 minutes]. c/i with SOB, Rt chest pain CTA chest: Acute pulmonary embolus is seen within right middle lobe branch of the pulmonary artery. No evidence of right heart strain. US BLE: No evidence of deep venous thrombosis. Patient does not have any chest pain. His pulse rate low 50s, will continue to monitor overnight. EKG prn for bradycardia. Provoked PE Called pharmacy to see if Eliquis is covered. They suggested Xarelto is covered by his insurance. Patient transition to Xarelto and instruction was clearly delivered to him Advised patient on the instruction to take Xarelto as an outpatient and asked him to visit his primary care physician within a week's time upon discharge on further recommendation on how long he has to take his Xarelto for. #. Chronic medical conditions Resumed home meds Following instructions were communicated to the patient at the time of discharge: Take medications as instructed. Follow up with your primary care doctor within a week's time for transition of care assessment. Establish care with heart doctor as your heart rate fluctuated while inpatient as you have been made aware of. Your insurance support xarelto, we prescribed eliquis first to see if it is covered. Your pharmacy is made aware to cancel eliquis order. and you will get xarelto only from your pharmacy. Take xarelto 15 mg twice a day for first 21 days then from 22nd day onwards take 20 mg tablet once daily. By CMS guidelines, a determination that the admission or continued stay is not medically necessary has been made by a member of the Utilization Review committee and a physician for this hospital stay. Therefore, a Code 44 will be completed and the inpatient admission will be changed to outpatient. Total Time Total Time Spent Total Time Spent (In Minutes): 35 Discharge Plan Discharge Items Patient Disposition: Home - Self-Care Reason For Visit: PE - provoked Discharge Diagnosis: Acute provoked PE Activity: Resume your previous activity Non-emergency contact: Primary Care Provider Call non-emergency contact if: you have any medication questions Follow-up/Referrals: Radha Guillaume, [Primary Care Provider] - Diet: Heart Healthy Addtl Attending Provider Instructions: Take medications as instructed. Follow up with your primary care doctor within a week's time for transition of care assessment. Establish care with heart doctor as your heart rate fluctuated while inpatient as you have been made aware of. Your insurance support xarelto, we prescribed eliquis first to see if it is covered. Your pharmacy is made aware to cancel eliquis order. and you will get xarelto only from your pharmacy. Take xarelto 15 mg twice a day for first 21 days then from 22nd day onwards take 20 mg tablet once daily. Pending Studies at Discharge: No Stand-Alone Forms: My [facility] [employer], Smoking Cessation Medications and DC Order Prescriptions: New Xarelto 15 mg tablet 15 mg PO BID 21 Days Qty: 42 RF: 0 Xarelto 20 mg tablet 20 mg PO DAILY 30 Days Qty: 30 RF: 0 Continued ferrous gluconate 324 mg (38 mg iron) tablet 324 mg PO WK RF: 0 latanoprost 0.005 % Drops 1 drp OPHTHALMIC (EYE) PM RF: 0 ascorbic acid (vitamin C) [Vitamin C] 1,000 mg Tablet 1 g PO DAILY RF: 0 docusate sodium [Stool Softener] 100 mg Capsule 100 mg PO DAILY RF: 0 lisinopril-hydrochlorothiazide 10-12.5 mg Tablet 1 tab PO QAM RF: 0 rosuvastatin 20 mg Tablet 20 mg PO QAM RF: 0 aspirin [Aspirin Low Dose] 81 mg Tablet,Delayed Release (Dr/Ec) 81 mg PO DAILY RF: 0 multivitamin Tablet 1 tab PO DAILY RF: 0 omeprazole 20 mg Tablet,Delayed Release (Dr/Ec) 20 mg PO DAILY RF: 0 Rhopressa 0.02 % Drops 1 drp OPL PM RF: 0 omega-3 fatty acids [Fish Oil Concentrate] 1,000 mg Capsule 1,000 mg PO BID RF: 0 psyllium husk [Fiber-Caps (psyllium husk)] 0.52 gram Capsule 0.52 g PO UD RF: 0 Discharge Orders: Discharge Order (Routine); Ordered 02/03/21 Ordered By: Ángela Chappell Admission Data Admit Date/Time: 02/02/21 02:15 Attending Provider: Ángela Chappell Admit Provider: Sammy Ceron Primary Care Provider: Radha Guillaume Other Providers: Sammy Ceron Other Interventions: Discharge Summary Assessment (RN) Last Done: 02/03/21 14:07
--- NOTE | 2021-02-05 05:42 | Electrocardiogram Report ---
Test Reason : Blood Pressure : / mmHG Vent. Rate : 059 BPM Atrial Rate : 059 BPM P-R Int : 170 ms QRS Dur : 102 ms QT Int : 438 ms P-R-T Axes : 008 -37 007 degrees QTc Int : 433 ms Sinus bradycardia Possible Left atrial enlargement Left axis deviation Left ventricular hypertrophy Abnormal ECG When compared with ECG of 01-FEB-2021 22:08, No significant change was found Confirmed by Ollie Butterfield ([id number]) on 02/05/2021 5:42:13 AM Referred By: REFERRED SELF Confirmed By:Ollie Butterfield
== END 2021-02-03 14:35 | disposition home or self-care (01) ==
LOC: ED 21:19 → 1E 02-02 02:15 → INTOOBSV 02-02 02:15 → 1E 02-02 03:06 → 2W 02-02 21:38